=== PATIENT | male | born 1990 | race African-American/Black ===

== ENCOUNTER 2019-03-25 22:56 | Emergency (ER) | payer OTHER ==
[2019-03-25] MEDS ORDERED: Tetan/Diph/Pertus SYR(Tdap)* 0.5 ML SYR(BOOSTRIX) use SYR IM ONE (23:34)
[2019-03-25] MEDS ORDERED: Sulfamethox/Trimethoprim DS 800/160* TAB PO ONE (23:35)
[2019-03-25] MEDS ORDERED: Lidocaine 1%** 5 ML VIAL INJ ONE (23:52)
--- NOTE | 2019-03-26 01:30 | ED ---
Adult Trauma - History of Current Complaint Chief Complaint: EDLacSutureRecheck Stated Complaint: LEFT FACIAL LACERATION PER CO Time Seen by Provider: 03/25/19 23:32 Pain Intensity: 0 - Allergy/Home Medications Allergies/Adverse Reactions: Allergies Allergy/AdvReac Type Severity Reaction Status Date / Time No Known Allergies Allergy Verified 03/25/19 23:11 PMH/Surg Hx/FS Hx/Imm Hx - Immunization History Date of Tetanus Vaccine: unk Immunizations Up to Date: Yes Infectious Disease History: No Infectious Disease History: Denies: Traveled Outside the [place] in Last 30 Days - Social History Alcohol Use: None Substance Use Type: Reports: None Smoking Status (MU): Unknown if Ever Smoked Physical Exam Vital Signs On Initial Exam: Initial Vitals Temp Pulse Resp BP Pulse Ox 99.1 F 67 18 144/91 98 03/25/19 23:10 03/25/19 23:10 03/25/19 23:10 03/25/19 23:10 03/25/19 23:10 Diagnostics - Vital Signs Vital Signs Temp Pulse Resp BP Pulse Ox 03/25/19 23:10 99.1 F 67 18 144/91 98 - Laboratory Lab Statement: Any lab studies that have been ordered have been reviewed, and results considered in the medical decision making process. Adult Trauma Course/Dx - Diagnoses Provider Diagnoses: Laceration, Abrasion Discharge - Sign-Out/Discharge Documenting (check all that apply): Patient Departure Patient Received Moderate/Deep Sedation with Procedure: No - Discharge Plan Condition: Stable Disposition: HOME Prescriptions: Sulfamethox/Trimethoprim DS* [Bactrim DS 800/160 TAB*] 1 tab PO BID 7 Days #14 tab Patient Education Materials: Laceration (ED), Care For Your Stitches (ED) Referrals: Jaylin VALDEZ,Caitlin Buchanan [Primary Care Provider] - Additional Instructions: Sutures out in 10 days. Take antibiotics as directed. May wash with warm running water and soap starting later today. Do not submerge underwater for a few days. Keep wound clean and dry. Return to the ED for any new or worsening symptoms. - Billing Disposition and Condition Condition: STABLE Disposition: Home
[2019-03-26 01:58] VITALS: BP 118/78
== END 2019-03-26 02:13 | disposition home or self-care (01) ==
LOC: ED 22:56
DX: S11.91XA Laceration without foreign body of unspecified part of neck, initial encounter (principal); S00.81XA Abrasion of other part of head, initial encounter; S50.311A Abrasion of right elbow, initial encounter; W50.0XXA Accidental hit or strike by another person, initial encounter; Y92.147 Courtyard of prison as the place of occurrence of the external cause
CPT/HCPCS: 90471; 90715; 96374; 99283; A9270-GY